=== PATIENT | male | born 1975 | race Caucasian/White ===

== ENCOUNTER 2018-04-14 13:59 | Emergency (ER) | payer MEDICAID ==
[~2018-04-14] VITALS: Ht 170.2 cm; Wt 79.8 kg
[2018-04-14 14:02] VITALS: Ht 170.2 cm; Wt 79.8 kg
[2018-04-14 15:21] VITALS: BP 119/83
== END 2018-04-14 15:21 | disposition home or self-care (01) ==
LOC: ED 13:59
DX: S39.012A Strain of muscle, fascia and tendon of lower back, initial encounter (principal); S09.8XXA Other specified injuries of head, initial encounter; E78.00 Pure hypercholesterolemia, unspecified; V49.49XA Driver injured in collision with other motor vehicles in traffic accident, initial encounter; Y93.I9 Activity, other involving external motion; Y92.89 Other specified places as the place of occurrence of the external cause; Y99.8 Other external cause status
CPT/HCPCS: J1885